=== PATIENT | female | born 2005 | race Caucasian/White ===

== ENCOUNTER 2025-05-02 19:28 | Emergency (ER) | payer BC ==
[2025-05-02 20:15] LABS: #Basophils 0.08 10x3/uL (0.0-0.2); #Eosinophils 0.90 10x3/uL (0.0-0.7); #Monocytes 0.56 10x3/uL (0.11-0.59); #Neutrophils 10.45 10x3/uL (1.40-6.50); %Basophils 0.6 % (0.0-1.0); %Eosinophils 6.5 % (0.0-10.0); %Lymphocytes 13.8 % (28.0-48.0); %Monocytes 4.0 % (0.0-4.0); %Neutrophils 75.0 % (31.0-61.0); Hematocrit 38.4 % (36.0-47.0); Hemoglobin 13.0 g/dL (12.0-16.0); Mean Corpuscular Hemoglobin 30.5 pg (25.0-35.0); Mean Corpuscular Volume 90.1 fL (78.0-98.0); Platelet Count 216 10x3/uL (130-400); Red Blood Cell (RBC) Count 4.26 mill/uL (4.00-5.20); White Blood Cell (WBC) Count 13.93 10x3/uL (4.8-10.8)
[2025-05-02 20:30] LABS: ALT (SGPT) 10 U/L (Less than 34); AST (SGOT) 14 U/L (11-34); Albumin 4.0 g/dL (3.1-4.5); Alkaline Phosphatase 49 U/L (40-100); Anion Gap 15 mmol/L (10-20); BUN (Urea Nitrogen) 10 mg/dL (7.0-18.7); Bilirubin, Total 0.6 mg/dL (0.3-1.2); Calc. Creatinine Clearance 0 mL/min (70-130); Calcium 8.9 mg/dL (7.8-10.44); Carbon Dioxide 23 mmol/L (22-29); Chloride 105 mmol/L (98-107); Globulin 2.5 g/dL (2.4-3.5); Glucose 109 mg/dL (70-105); Potassium 3.8 mmol/L (3.5-5.1); Sodium 139 mmol/L (136-145)
[2025-05-02] MEDS ORDERED: Dexamethasone 10 MG/ML VIAL ONE (21:10)
== END 2025-05-02 22:36 | disposition home or self-care (01) ==
LOC: ERS 19:28
DX: J45.909 Unspecified asthma, uncomplicated (principal)
CPT/HCPCS: 36415; 71045; 80053; 84484; 85025; 87428; 93005; 96372; J1100; J7620